=== PATIENT | male | born 1960 | race Caucasian/White ===

== ENCOUNTER 2019-06-07 13:30 | Emergency (ER) | payer OTHER ==
[~2019-06-07] VITALS: Ht 167.6 cm; Wt 81.2 kg
[2019-06-07 13:30] VITALS: BP 126/73
--- NOTE | 2019-06-07 14:00 | NUR ---
PATIENT PRESENTS TO ED WITH C/O NAUSEA/VOMITITNG SEVEREAL TIMES A DAY, LOWER ABD PAIN X 1.5 WEEKS, PT WAS SEEN AT HIS PMD 06/06/19 FOR SAME S/S, TREATMENT GIVEN FOR PAIN, NOT RELEAVE, HX-DEPRESSION,ANXIETY,PANCREATITS . LUNGS CLEAR BL; HR EVEN AND REGULAR; PT DENIES ANY FEVER, CP, SOB, OR COUGH AT THIS TIME; PATIENT STATES PAIN OF 7/10 AT THIS TIME; VSS; PATIENT POSITIONED FOR COMFORT; HOB ELEVATED; BEDRAILS UP X2; BED DOWN. ER MD MADE AWARE OF PT STATUS.
[2019-06-07] MEDS ORDERED: VITD1000 PO (14:03)
[2019-06-07] MEDS ORDERED: DICL-388 PO (14:03)
[2019-06-07] MEDS ORDERED: ESCI10TA PO (14:03)
--- NOTE | 2019-06-07 14:05 | NUR ---
Patient being evaluated by physician at bedside.
--- NOTE | 2019-06-07 14:10 | NUR ---
Francis sumner in [facility] - 06/07/19 at 1454 by [email or web address] Patient being evaluated by physician at bedside.
[2019-06-07] MEDS ORDERED: NACL 0.9% 1,000 ML IV ONE (14:20)
[2019-06-07] MEDS ORDERED: ONDANSETRON 4 MG/2 ML VIAL IVP ONE (14:20)
[2019-06-07] MEDS ORDERED: MORPHINE SULFATE 4 MG/ML SYR IVP ONE (14:20)
[2019-06-07 14:56] LABS: BASOPHILS % (AUTO) 0.8 % (0.0-2.0); EOSINOPHILS # (AUTO) 0.1 K/uL (0-0.4); EOSINOPHILS % (AUTO) 1.9 % (0.0-4.0); HEMATOCRIT 40.9 % (36-52); HEMOGLOBIN 13.7 g/dL (12.0-18.0); LYMPHOCYTES # (AUTO) 2.5 K/uL (2.0-11.5); LYMPHOCYTES % (AUTO) 39.7 % (20.5-51.1); MEAN CORPUSCULAR HEMOGLOBIN 31 pg (27-31); MEAN CORPUSCULAR HGB CONC 34 g/dL (33-37); MEAN CORPUSCULAR VOLUME 91.3 fL (80-94); MONOCYTES # (AUTO) 0.6 K/uL (0.8-1.0); MONOCYTES % (AUTO) 10.4 % (1.7-9.3); NEUTROPHILS # (AUTO) 2.9 K/uL (1.8-7.7); NEUTROPHILS % (AUTO) 47.2 % (42.2-75.2); PLATELET COUNT (AUTO) 285 K/uL (140-450); RED BLOOD CELL COUNT(AUTO) 4.47 MIL/uL (4.20-6.10); RED CELL DISTRIBUTION WIDTH 14.1 % (11.6-13.7); WHITE BLOOD COUNT (AUTO) 6.2 K/uL (4.8-10.8)
[2019-06-07 15:03] LABS: ANION GAP 12.2 (8-16); CARBON DIOXIDE 28.5 mmol/L (21-32); CREATININE 1.1 mg/dL (0.7-1.3); POTASSIUM 3.7 mmol/L (3.5-5.1)
[2019-06-07 15:03] LABS: APPEARANCE,URINE CLEAR (CLEAR); BILIRUBIN,URINE NEGATIVE (NEGATIVE); BLOOD, URINE NEGATIVE (NEGATIVE); COLOR,URINE YELLOW (YELLOW); LEUKOCYTE ESTERASE ,URINE NEGATIVE (NEGATIVE); NITRITE, URINE NEGATIVE (NEGATIVE); UGLUCOSE NEGATIVE (NEGATIVE)
[2019-06-07 15:09] LABS: ALBUMIN 3.7 g/dL (3.4-5.0); TOTAL BILIRUBIN 0.3 mg/dL (0.0-1.0)
[2019-06-07 16:08] VITALS: BP 130/70
--- NOTE | 2019-06-07 16:10 | NUR ---
Patient discharged with v/s stable. Written and verbal after care instructions given and explained. Patient alert, oriented and verbalized understanding of instructions. Ambulatory with steady gait. All questions addressed prior to discharge. ID band removed. Patient advised to follow up with PMD. Rx of UNTRAM, ZOFRAN, PROTONIX given. Patient educated on indication of medication including possible reaction and side effects. Opportunity to ask questions provided and answered.
== END 2019-06-07 16:10 | disposition home or self-care (01) ==
LOC: MED 13:30
DX: R11.2 Nausea with vomiting, unspecified (principal); R19.7 Diarrhea, unspecified; F41.9 Anxiety disorder, unspecified; Z79.899 Other long term (current) drug therapy; Z87.19 Personal history of other diseases of the digestive system
CPT/HCPCS: 36415; 74176; 80053; 81003; 83690; 85025; 96361; 96374; 96375; 99284; J2270; J2405; J7030

== ENCOUNTER 2019-06-12 14:02 | Emergency (ER) | payer OTHER ==
[~2019-06-12] VITALS: Ht 167.6 cm; Wt 80.7 kg
[~2019-06-12 14:02] MED LIST: DICL-388 PO; ESCI10TA PO; VITD1000 PO
[2019-06-12 14:11] VITALS: BP 134/76
[2019-06-12] MEDS ORDERED: NACL 0.9% 1,000 ML IV SCH (14:32)
[2019-06-12] MEDS ORDERED: ONDANSETRON 4 MG/2 ML VIAL IVP ONE (14:35)
[2019-06-12] MEDS ORDERED: KETOROLAC 30 MG/ML VIAL IVP ONE (14:35)
--- NOTE | 2019-06-12 14:59 | NUR ---
PT PRESENTS TO ED WITH C/O LOWER ABDOMINAL PAIN X5 DAYS. PT STATES PAIN RADIATES TO RIGHT LOWER BACK. +N/V; DENIES DIARRHEA OR FEVER. AFEBRILE AT THIS TIME. VSS. HX OF PANCREATITIS.
[2019-06-12 15:14] LABS: BASOPHILS # (AUTO) 0.1 K/uL (0.00-0.22); BASOPHILS % (AUTO) 0.9 % (0.0-2.0); EOSINOPHILS # (AUTO) 0.2 K/uL (0-0.4); EOSINOPHILS % (AUTO) 3.5 % (0.0-4.0); HEMATOCRIT 41.7 % (36-52); HEMOGLOBIN 13.6 g/dL (12.0-18.0); LYMPHOCYTES # (AUTO) 2.4 K/uL (2.0-11.5); LYMPHOCYTES % (AUTO) 36.7 % (20.5-51.1); MEAN CORPUSCULAR HEMOGLOBIN 30 pg (27-31); MEAN CORPUSCULAR HGB CONC 33 g/dL (33-37); MEAN CORPUSCULAR VOLUME 91.6 fL (80-94); MONOCYTES # (AUTO) 0.6 K/uL (0.8-1.0); MONOCYTES % (AUTO) 9.3 % (1.7-9.3); NEUTROPHILS # (AUTO) 3.2 K/uL (1.8-7.7); NEUTROPHILS % (AUTO) 49.6 % (42.2-75.2); PLATELET COUNT (AUTO) 281 K/uL (140-450); RED BLOOD CELL COUNT(AUTO) 4.56 MIL/uL (4.20-6.10); RED CELL DISTRIBUTION WIDTH 13.7 % (11.6-13.7); WHITE BLOOD COUNT (AUTO) 6.4 K/uL (4.8-10.8)
[2019-06-12 15:33] LABS: ANION GAP 13.1 (8-16); CARBON DIOXIDE 26.8 mmol/L (21-32); CREATININE 1.1 mg/dL (0.7-1.3); POTASSIUM 3.9 mmol/L (3.5-5.1)
[2019-06-12 15:39] LABS: ALBUMIN 3.5 g/dL (3.4-5.0); TOTAL BILIRUBIN 0.2 mg/dL (0.0-1.0)
--- NOTE | 2019-06-12 15:54 | NUR ---
DR VALENTIN AT BEDSIDE
[2019-06-12 16:16] VITALS: BP 144/82
--- NOTE | 2019-06-12 16:17 | NUR ---
IV removed, catheter intact and site benign. Applied folded 4x4 gauze and tape to stop bleeding.
--- NOTE | 2019-06-12 16:18 | NUR ---
Patient discharged with v/s stable. Written and verbal after care instructions given and explained. Patient alert, oriented and verbalized understanding of instructions. Ambulatory with steady gait. All questions addressed prior to discharge. ID band removed. Patient advised to follow up with PMD. Rx of [place] given. Patient educated on indication of medication including possible reaction and side effects. Opportunity to ask questions provided and answered.
== END 2019-06-12 16:18 | disposition home or self-care (01) ==
LOC: MED 14:02
DX: R10.13 Epigastric pain (principal); R11.2 Nausea with vomiting, unspecified; Z79.899 Other long term (current) drug therapy
CPT/HCPCS: 36415; 80053; 81002; 83690; 85025; 96361; 96374; 96375; 99283; J1885; J2405; J7030

== ENCOUNTER 2019-07-29 22:40 | Emergency (ER) | payer OTHER ==
[~2019-07-29] VITALS: Ht 167.6 cm; Wt 81.6 kg
[2019-07-29 22:55] VITALS: BP 135/82
[2019-07-30 00:19] LABS: BASOPHILS # (AUTO) 0.2 K/uL (0.00-0.22); EOSINOPHILS # (AUTO) 0.3 K/uL (0-0.4); EOSINOPHILS % (AUTO) 2.6 % (0.0-4.0); HEMATOCRIT 38.4 % (36-52); LYMPHOCYTES # (AUTO) 3.6 K/uL (2.0-11.5); LYMPHOCYTES % (AUTO) 37.9 % (20.5-51.1); MEAN CORPUSCULAR HEMOGLOBIN 31 pg (27-31); MEAN CORPUSCULAR HGB CONC 34 g/dL (33-37); MEAN CORPUSCULAR VOLUME 91.7 fL (80-94); MONOCYTES # (AUTO) 0.9 K/uL (0.8-1.0); MONOCYTES % (AUTO) 9.5 % (1.7-9.3); NEUTROPHILS # (AUTO) 4.5 K/uL (1.8-7.7); PLATELET COUNT (AUTO) 261 K/uL (140-450); RED BLOOD CELL COUNT(AUTO) 4.19 MIL/uL (4.20-6.10); RED CELL DISTRIBUTION WIDTH 14.7 % (11.6-13.7); WHITE BLOOD COUNT (AUTO) 9.5 K/uL (4.8-10.8)
[2019-07-30 00:49] LABS: ANION GAP 13.6 (8-16); CARBON DIOXIDE 26.7 mmol/L (21-32); CREATININE 1.5 mg/dL (0.7-1.3); POTASSIUM 3.3 mmol/L (3.5-5.1)
--- NOTE | 2019-07-30 00:50 | NUR ---
PT AMBULATED TO ER BED 03
[2019-07-30 00:55] LABS: TOTAL BILIRUBIN 0.3 mg/dL (0.0-1.0)
--- NOTE | 2019-07-30 01:00 | NUR ---
58 YO M BIB SELF FROM HOME PRESENTS TO ED C/O DIZZINESS, MILD CUMMINS, MILD NAUSEA X 1.5 WEEKS. PT STATES "I WAS DRIVING TODAY AND I FELT LIKE MY HEAD WAS SPINNING IN THE CAR". PT STATES HE HAS HAD VERTIGO IN THE PAST MANY, MANY YEARS AGO. -- PT AWAKE, A/O X 4, CALM, COOPERATIVE. BEHAVIOR APPROPRIATE FOR AGE. ANSWERING QUESTIONS APPROPRIATELY. -- SKIN PINK, WARM, DRY. BREATHING EVEN, UNLABORED. -- STEADY GAIT NOTED. PT DENIES LOC, FAINTING. PMH-- DENIES
[2019-07-30] MEDS ORDERED: MECLIZINE 25 MG TAB PO ONE ×2 (01:15→02:10)
[2019-07-30] MEDS ORDERED: ONDANSETRON 4 MG ODT PO ONE (01:15)
[2019-07-30] MEDS ORDERED: IBUPROFEN 600 MG TAB PO ONE (01:15)
[2019-07-30] MEDS ORDERED: POTASSIUM CHLORIDE 10 MEQ TABER PO ONE (01:30)
[2019-07-30 02:44] VITALS: BP 148/85
--- NOTE | 2019-07-30 02:44 | NUR ---
Patient discharged with v/s stable. Written and verbal after care instructions given and explained. Patient alert, oriented and verbalized understanding of instructions. Ambulatory with steady gait. All questions addressed prior to discharge. ID band removed. Patient advised to follow up with PMD. Rx of Meclizine, Ibuprofen, and Zofran given. Patient educated on indication of medication including possible reaction and side effects. Opportunity to ask questions provided and answered.
== END 2019-07-30 02:44 | disposition home or self-care (01) ==
LOC: MED 22:40
DX: R42 Dizziness and giddiness (principal); R51 Headache; N17.9 Acute kidney failure, unspecified; E87.6 Hypokalemia; Z79.899 Other long term (current) drug therapy; Z79.1 Long term (current) use of non-steroidal anti-inflammatories (NSAID)
CPT/HCPCS: 36415; 80053; 85025; 99284; J8597; Q0162; 93005

== ENCOUNTER 2020-01-03 01:49 | Emergency (ER) | payer OTHER ==
[~2020-01-03] VITALS: Ht 167.6 cm; Wt 81.6 kg
[2020-01-03 01:50] VITALS: BP 147/86
--- NOTE | 2020-01-03 01:50 | NUR ---
TO BED # 08 AMBULATORY
--- NOTE | 2020-01-03 01:50 | NUR ---
59 Y/O MALE BIB SELF FOR NONPRODUCTIVE COUGH, BODYACHES, AND VOMITING FOR 11 DAYS. BREATH SOUNDS ARE CLEAR (ANT/POST) BILATERALLY. CHEST PAIN FROM COUGHING NOTED; PAIN IS A 5/10. 97% ON RA; 18RR. PATIENT STATES THAT HE HAD A HISTORY OF TUBERCULOSIS BUT IS NO LONGER ACTIVE. ERMD MADE AWARE OF STATUS. SIDE RAILSX1. WILL CONTINUE TO MONITOR. PMH:DENIES RX:DENIES NKDA
--- NOTE | 2020-01-03 02:02 | NUR ---
Dr. Chaney examining patient.
[2020-01-03] MEDS ORDERED: ALBUTEROL 0.083% 2.5 MG/3 ML NEBU INH ONE (02:05)
--- NOTE | 2020-01-03 02:28 | NUR ---
RT AT BEDSIDE FOR BREATHING TREATMENT.
[2020-01-03 03:00] VITALS: BP 131/81
--- NOTE | 2020-01-03 03:00 | NUR ---
Patient discharged with v/s stable. Written and verbal after care instructions given and explained. Patient alert, oriented and verbalized understanding of instructions. Ambulatory with steady gait. All questions addressed prior to discharge. ID band removed. Patient advised to follow up with PMD. Rx of METHYLPREDNISOLONE; AZITHROMYCIN given. Patient educated on indication of medication including possible reaction and side effects. Opportunity to ask questions provided and answered.
== END 2020-01-03 03:00 | disposition home or self-care (01) ==
LOC: MED 01:49
DX: R05 Cough (principal); M79.10 Myalgia, unspecified site; R11.0 Nausea; R06.02 Shortness of breath; R07.9 Chest pain, unspecified; Z79.899 Other long term (current) drug therapy
CPT/HCPCS: 71046; 94640; 99283; J7613; Q0092

== ENCOUNTER 2020-12-02 15:03 | Emergency (ER) | payer OTHER ==
[~2020-12-02] VITALS: Ht 167.6 cm; Wt 79.8 kg
[~2020-12-02 15:03] MED LIST changes: +DICL-342 PO; -DICL-388 PO
[2020-12-02] MEDS ORDERED: ASPIRIN 325 MG TAB PO ONE (15:10)
[2020-12-02 15:32] VITALS: BP 132/75
[2020-12-02] MEDS ORDERED: KETOROLAC 30 MG/ML VIAL IM ONE (15:40)
--- NOTE | 2020-12-02 15:47 | NUR ---
Pt taken to XR by [facility] via W/C.
--- NOTE | 2020-12-02 16:06 | NUR ---
60 y/o male c/o midsternal chest pain 8/10 sharp pain [id number]. Pt claims he began drinking ETOH X2days ago to "take the pain away". PMH: Recovering alcoholic
[2020-12-02 16:27] LABS: BASOPHILS # (AUTO) 0.1 K/uL (0.00-0.22); BASOPHILS % (AUTO) 1.1 % (0.0-2.0); EOSINOPHILS # (AUTO) 0.1 K/uL (0-0.4); HEMATOCRIT 42.6 % (36-52); HEMOGLOBIN 14.4 g/dL (12.0-18.0); LYMPHOCYTES # (AUTO) 3.1 K/uL (2.0-11.5); LYMPHOCYTES % (AUTO) 45.8 % (20.5-51.1); MEAN CORPUSCULAR HEMOGLOBIN 31 pg (27-31); MEAN CORPUSCULAR HGB CONC 34 g/dL (33-37); MEAN CORPUSCULAR VOLUME 91.3 fL (80-94); MONOCYTES # (AUTO) 0.5 K/uL (0.8-1.0); MONOCYTES % (AUTO) 6.9 % (1.7-9.3); NEUTROPHILS # (AUTO) 3.1 K/uL (1.8-7.7); NEUTROPHILS % (AUTO) 45.2 % (42.2-75.2); PLATELET COUNT (AUTO) 338 K/uL (140-450); RED BLOOD CELL COUNT(AUTO) 4.67 MIL/uL (4.20-6.10); RED CELL DISTRIBUTION WIDTH 14.3 % (11.6-13.7); WHITE BLOOD COUNT (AUTO) 6.8 K/uL (4.8-10.8)
[2020-12-02 16:41] LABS: ALBUMIN 4.2 g/dL (3.4-5.0); ANION GAP 16.6 (8-16); CARBON DIOXIDE 25.2 mmol/L (21-32); CREATININE 0.8 mg/dL (0.6-1.3); POTASSIUM 3.8 mmol/L (3.5-5.1); TOTAL BILIRUBIN 0.3 mg/dL (0.0-1.0)
[2020-12-02 17:39] VITALS: BP 132/75
--- NOTE | 2020-12-02 17:40 | NUR ---
Patient discharged with v/s stable. Written and verbal after care instructions given and explained. Patient alert, oriented and verbalized understanding of instructions. Ambulatory with steady gait. All questions addressed prior to discharge. ID band removed. Patient advised to follow up with PMD. Rx of naprosyn 500mg PO prn pain given. Patient educated on indication of medication including possible reaction and side effects. Opportunity to ask questions provided and answered.
== END 2020-12-02 17:40 | disposition home or self-care (01) ==
LOC: MED 15:03
DX: R07.89 Other chest pain (principal); F10.129 Alcohol abuse with intoxication, unspecified; R03.0 Elevated blood-pressure reading, without diagnosis of hypertension; Z79.899 Other long term (current) drug therapy; Y90.9 Presence of alcohol in blood, level not specified
CPT/HCPCS: 36415; 71045; 80053; 83690; 84484; 85025; 93005; 96372; 99285; G0482; J1885

== ENCOUNTER 2021-05-24 08:03 | Day surgery (SDC) | payer OTHER ==
[~2021-05-24] VITALS: Ht 167.6 cm; Wt 81.6 kg
[2021-05-24] MEDS ORDERED: fentaNYL citrate 0.05 MG/ML VIAL ONE (10:28)
[2021-05-24] MEDS ORDERED: LIDOCAINE 2% 100 MG/5 ML UJET TP ONE (10:28)
[2021-05-24] MEDS ORDERED: fentaNYL citrate 0.05 MG/ML VIAL IVP ONE (12:10)
== END 2021-05-24 12:00 | disposition home or self-care (01) ==
LOC: MDS 08:03 → MMU 08:08 → MDS 12:00
PROVIDERS: ATTEND Internal Medicine Gastroenterology
DX: Z12.11 Encounter for screening for malignant neoplasm of colon (principal); I10 Essential (primary) hypertension; Z79.899 Other long term (current) drug therapy
CPT/HCPCS: 45378; J3010